=== PATIENT | female | born 1985 | race Two or more races ===

== ENCOUNTER 2019-05-11 21:38 | Inpatient (IN) | payer OTHER ==
[~2019-05-11] VITALS: Ht 170.2 cm; Wt 59.1 kg
[2019-05-11] MEDS ORDERED: ALPR1TAB7 PO (21:49)
[2019-05-11] MEDS ORDERED: LORA-1001 PO (21:49)
[2019-05-11] MEDS ORDERED: LIDOCAINE 5% TRANSDERMAL PATCH TD ONE (22:00)
[2019-05-11 22:46] LABS: BASOPHILS % (AUTO) 0.3 % (0.0-2.0); EOSINOPHILS % (AUTO) 1.7 % (1.0-6.0); HEMATOCRIT 25.5 % (36-46); HEMOGLOBIN 8.7 g/dL (12.0-16.0); LYMPHOCYTES # (AUTO) 0.9 K/uL (1.0-4.8); LYMPHOCYTES % (AUTO) 20.7 % (22.0-44.0); MEAN CORPUSCULAR HEMOGLOBIN 26.7 pg (26.0-34.0); MEAN CORPUSCULAR HGB CONC 34.1 G/dL (31.0-37.0); MEAN CORPUSCULAR VOLUME 78 fL (80-100); MONOCYTES # (AUTO) 0.3 K/uL (0.1-1.0); NEUTROPHILS # (AUTO) 3.1 K/uL (1.8-7.7); NEUTROPHILS % (AUTO) 71.3 % (40.0-70.0); PLATELET COUNT (AUTO) 405 K/uL (150-450); RED BLOOD CELL COUNT(AUTO) 3.25 MIL/uL (4.00-5.20); RED CELL DISTRIBUTION WIDTH 15.2 % (11.5-14.5)
[2019-05-11 22:48] LABS: APPEARANCE,URINE CLOUDY (CLEAR); BILIRUBIN,URINE NEGATIVE (NEGATIVE); GLUCOSE, URINE (UA) NEGATIVE (NEGATIVE); KETONES,URINE NEGATIVE (NEGATIVE); LEUKOCYTE ESTERASE ,URINE NEGATIVE (NEGATIVE); NITRATE,URINE NEGATIVE (NEGATIVE); OCCULT BLOOD,URINE NEGATIVE (NEGATIVE); PH,URINE 7.5 (5.0-8.0); PROTEIN,URINE NEGATIVE (NEGATIVE)
[2019-05-11 22:54] LABS: AMPHET/METH SCREEN,URINE POSITIVE (NEGATIVE); BARBITURATE SCREEN, URINE NEGATIVE (NEGATIVE); BENZODIAZEPINES SCREEN,URINE POSITIVE (NEGATIVE); CANNABINOID SCREEN,URINE NEGATIVE (NEGATIVE); COCAINE SCREEN,URINE NEGATIVE (NEGATIVE); METHADONE SCREEN, URINE NEGATIVE (NEGATIVE); OPIATE SCREEN,URINE POSITIVE (NEGATIVE)
[2019-05-11 22:56] LABS: PHENCYCLIDINE SCREEN,URINE NEGATIVE (NEGATIVE)
[2019-05-11 22:57] LABS: ANION GAP 4 mmol/L (8-16); CALCIUM, TOTAL 8.5 mg/dL (8.8-10.5); CARBON DIOXIDE 31 mmol/L (22-29); CHLORIDE 102 mmol/L (98-107); CREATININE 0.77 mg/dL (0.60-1.30); GLOMERULAR FILTR. RATE CALC > 60 mL/min (>60); GLUCOSE,RANDOM 110 mg/dL (70-110); POTASSIUM 3.6 mmol/L (3.5-5.1); SODIUM SERUM 137 mmol/L (136-145); UREA NITROGEN, BLOOD 5 mg/dL (7-18)
[2019-05-11 23:06] LABS: BACTERIA,URINE None Seen /HPF (None Seen); RBC,URINE None Seen /HPF (0-2); SQUAMOUS EPITHELIAL CELL,UR Few /LPF (None Seen); WBC,URINE 0-2 /HPF (0-5)
[2019-05-11 23:10] LABS: ALANINE AMINOTRANSFERASE 17 U/L (12-78); ALBUMIN 2.8 g/dL (3.4-5.0); ALKALINE PHOSPHATASE 93 U/L (46-116); ASPARTATE AMINOTRANSFERASE 18 U/L (15-37); BILIRUBIN,TOTAL 0.4 mg/dL (0.1-1.0); HCG,QUANTITATIVE < 1 mIU/mL (0-6); TOTAL PROTEIN, SERUM 6.9 g/dL (6.4-8.2)
[2019-05-11] MEDS ORDERED: ONDANSETRON HCL 4 MG/2 ML VIAL IVP PRN (23:30)
[2019-05-11] MEDS ORDERED: LORazepam 2 MG/ML VIAL IM PRN (23:30)
[2019-05-11] MEDS ORDERED: 0.9% SODIUM CHLORIDE 10 ML SYRINGE IVP PRN (23:30)
[2019-05-11] MEDS ORDERED: SULFAMETHOX/TRIMETH DS 800-160 MG/TABLET PO ONE (23:30)
[2019-05-11] MEDS ORDERED: POTASSIUM CHL 10 MEQ/WATER 50 ML IV PRN (23:30)
[2019-05-11] MEDS ORDERED: ZOLPIDEM TARTRATE 5 MG TABLET PO PRN (23:30)
[2019-05-11] MEDS ORDERED: MAGNESIUM SULFATE 2 GM/WATER 50 ML IV PRN (23:30)
[2019-05-11] MEDS ORDERED: MAGNESIUM OXIDE 400 MG TABLET PO PRN (23:30)
[2019-05-11] MEDS ORDERED: POTASSIUM CHLORIDE 20 MEQ ER TABLET PO PRN (23:30)
[2019-05-11] MEDS ORDERED: CefTRIAXone 1 GM/DEXTROSE 50 ML IV ONE (23:30)
[2019-05-11] MEDS ORDERED: MAGNESIUM SULFATE 4 GM/WATER 100 ML IV PRN (23:30)
[2019-05-12 03:31] VITALS: BP 107/71
[2019-05-12] MEDS: ENOXAPARIN SODIUM 40 MG/0.4 ML PF SYRINGE SQ SCH (08:03)
[2019-05-12] MEDS: PANTOPRAZOLE SODIUM 40 MG DR TABLET PO SCH (08:04)
[2019-05-12] MEDS: ACETAMINOPHEN 325 MG TABLET PO PRN ×2 (08:04→12:38)
[2019-05-12 08:11] VITALS: BP 102/64
[2019-05-12 08:32] LABS: BASOPHILS % (AUTO) 0.2 % (0.0-2.0); EOSINOPHILS % (AUTO) 4.1 % (1.0-6.0); HEMATOCRIT 29.2 % (36-46); HEMOGLOBIN 9.6 g/dL (12.0-16.0); LYMPHOCYTES # (AUTO) 0.8 K/uL (1.0-4.8); LYMPHOCYTES % (AUTO) 25.7 % (22.0-44.0); MEAN CORPUSCULAR HEMOGLOBIN 26.2 pg (26.0-34.0); MEAN CORPUSCULAR VOLUME 79 fL (80-100); MONOCYTES # (AUTO) 0.2 K/uL (0.1-1.0); MONOCYTES % (AUTO) 6.5 % (2.0-9.0); NEUTROPHILS # (AUTO) 2.1 K/uL (1.8-7.7); NEUTROPHILS % (AUTO) 63.5 % (40.0-70.0); PLATELET COUNT (AUTO) 427 K/uL (150-450); RED BLOOD CELL COUNT(AUTO) 3.68 MIL/uL (4.00-5.20); RED CELL DISTRIBUTION WIDTH 15.7 % (11.5-14.5)
[2019-05-12 08:42] LABS: ANION GAP 7 mmol/L (8-16); CALCIUM, TOTAL 8.7 mg/dL (8.8-10.5); CARBON DIOXIDE 30 mmol/L (22-29); CHLORIDE 104 mmol/L (98-107); CREATININE 0.78 mg/dL (0.60-1.30); GLOMERULAR FILTR. RATE CALC > 60 mL/min (>60); GLUCOSE,RANDOM 108 mg/dL (70-110); POTASSIUM 3.9 mmol/L (3.5-5.1); SODIUM SERUM 141 mmol/L (136-145); UREA NITROGEN, BLOOD 5 mg/dL (7-18)
[2019-05-12] MEDS ORDERED: DOCUSATE SODIUM 100 MG CAPSULE PO SCH (09:00)
[2019-05-12] MEDS ORDERED: THIAMINE HCL 100 MG TABLET PO SCH (09:00)
[2019-05-12] MEDS ORDERED: FOLIC ACID 1 MG TABLET PO SCH (09:00)
[2019-05-12] MEDS ORDERED: MAGNESIUM SULFATE 2 GM, MVI, ADULT NO.1 WITH VIT K 10 ML, THIAMINE HCL 100 MG, FOLIC AC... IV ONE ×5 (11:15)
[2019-05-12 11:35] VITALS: BP 121/70
[2019-05-12] MEDS ORDERED: DOCUSATE SODIUM 100 MG CAPSULE PO PRN (13:30)
[2019-05-12] MEDS ORDERED: VANCOMYCIN HCL 1.25 GM in DEXTROSE 5%-WATER 250 ML IV ONE (14:00)
[2019-05-12] MEDS ORDERED: SODIUM CHLORIDE 0.9% 500 ML IV ONE (14:27)
[2019-05-12] MEDS ORDERED: MORPHINE SULFATE 10 MG/5 ML SOLUTION UDCUP PO PRN (16:00)
[2019-05-12] MEDS ORDERED: ALPRAZolam 0.25 MG TABLET PO SCH (16:00)
[2019-05-12 16:05] VITALS: BP 128/77
[2019-05-12] MEDS: ALPRAZolam 0.25 MG TABLET PO PRN (16:36)
[2019-05-12] MEDS: MORPHINE SULFATE 2 MG/ML SYRINGE IVP PRN (16:42)
[2019-05-12] MEDS: NICOTINE 14 MG/24 HOUR PATCH TD SCH (18:21)
[2019-05-12 20:47] VITALS: BP 114/60
[2019-05-12] MEDS: MIRTAZAPINE 15 MG TABLET PO SCH (20:57)
[2019-05-12] MEDS ORDERED: QUEtiapine FUMARATE 25 MG TABLET PO SCH (21:00)
[2019-05-12] MEDS: CefTRIAXone 1 GM/DEXTROSE 50 ML IV SCH (21:04)
[2019-05-12 23:16] VITALS: BP 101/68
[2019-05-13] MEDS: ALPRAZolam 0.25 MG TABLET PO PRN ×3 (00:08→22:40)
[2019-05-13] MEDS: ACETAMINOPHEN 325 MG TABLET PO PRN (00:12)
[2019-05-13] MEDS: VANCOMYCIN HCL 1 GM/D5% WATER 200 ML IV SCH ×3 (02:04→14:17)
[2019-05-13] MEDS: MORPHINE SULFATE 2 MG/ML SYRINGE IVP PRN ×3 (02:04→22:38)
[2019-05-13] MEDS: LORazepam 2 MG/ML VIAL IVP PRN ×2 (02:08→18:41)
[2019-05-13 08:15] VITALS: BP 100/60
[2019-05-13] MEDS: PANTOPRAZOLE SODIUM 40 MG DR TABLET PO SCH (10:14)
[2019-05-13] MEDS: NICOTINE 14 MG/24 HOUR PATCH TD SCH (10:14)
[2019-05-13] MEDS: ENOXAPARIN SODIUM 40 MG/0.4 ML PF SYRINGE SQ SCH (10:15)
[2019-05-13] MEDS ORDERED: SODIUM CHLORIDE 0.9% 250 ML IV ONE (14:13)
[2019-05-13 15:53] VITALS: BP 117/76
[2019-05-13 19:38] VITALS: BP 124/85
[2019-05-13] MEDS: MIRTAZAPINE 15 MG TABLET PO SCH (21:25)
[2019-05-13] MEDS: QUEtiapine FUMARATE 100 MG TABLET PO SCH (21:26)
[2019-05-13] MEDS: CefTRIAXone 1 GM/DEXTROSE 50 ML IV SCH (22:38)
[2019-05-13 23:31] VITALS: BP 120/73
[2019-05-14] MEDS: VANCOMYCIN HCL 1 GM/D5% WATER 200 ML IV SCH ×2 (00:31→06:28)
[2019-05-14] MEDS: LORazepam 2 MG/ML VIAL IVP PRN (01:44)
[2019-05-14 05:01] VITALS: BP 121/71
[2019-05-14] MEDS: NICOTINE 14 MG/24 HOUR PATCH TD SCH (09:11)
[2019-05-14] MEDS: PANTOPRAZOLE SODIUM 40 MG DR TABLET PO SCH (09:11)
[2019-05-14] MEDS: ENOXAPARIN SODIUM 40 MG/0.4 ML PF SYRINGE SQ SCH (09:11)
[2019-05-14 11:20] LABS: ANION GAP 8 mmol/L (8-16); CALCIUM, TOTAL 9.1 mg/dL (8.8-10.5); CARBON DIOXIDE 27 mmol/L (22-29); CHLORIDE 110 mmol/L (98-107); CREATININE 0.94 mg/dL (0.60-1.30); GLOMERULAR FILTR. RATE CALC > 60 mL/min (>60); GLUCOSE,RANDOM 99 mg/dL (70-110); POTASSIUM 3.7 mmol/L (3.5-5.1); SODIUM SERUM 145 mmol/L (136-145); UREA NITROGEN, BLOOD 9 mg/dL (7-18); VANCOMYCIN,RANDOM 14.5 mcg/mL (25.0-50.0)
[2019-05-14 11:32] VITALS: BP 102/65
[2019-05-14] MEDS: ChlordiazePOXIDE HCL 25 MG CAPSULE PO PRN (14:57)
[2019-05-14 15:28] VITALS: BP 109/63
[2019-05-14] MEDS: CEPHALEXIN MONOHYDRATE 500 MG CAPSULE PO SCH ×2 (15:53→20:12)
[2019-05-14] MEDS: ACETAMINOPHEN 325 MG TABLET PO PRN ×2 (16:38→20:16)
[2019-05-14] MEDS: MORPHINE SULFATE 2 MG/ML SYRINGE IVP PRN ×2 (17:52→22:21)
[2019-05-14 19:38] VITALS: BP 127/76
[2019-05-14] MEDS: QUEtiapine FUMARATE 100 MG TABLET PO SCH (20:12)
[2019-05-14] MEDS: SULFAMETHOX/TRIMETH DS 800-160 MG/TABLET PO SCH (20:12)
[2019-05-14] MEDS: MIRTAZAPINE 15 MG TABLET PO SCH (20:12)
[2019-05-14] MEDS: ALPRAZolam 0.25 MG TABLET PO PRN (22:21)
[2019-05-15 08:15] VITALS: BP 111/78
[2019-05-15] MEDS: NICOTINE 14 MG/24 HOUR PATCH TD SCH (08:36)
[2019-05-15] MEDS: SULFAMETHOX/TRIMETH DS 800-160 MG/TABLET PO SCH (08:36)
[2019-05-15] MEDS: CEPHALEXIN MONOHYDRATE 500 MG CAPSULE PO SCH (08:36)
[2019-05-15] MEDS: PANTOPRAZOLE SODIUM 40 MG DR TABLET PO SCH (08:36)
[2019-05-15] MEDS: ENOXAPARIN SODIUM 40 MG/0.4 ML PF SYRINGE SQ SCH (08:37)
[2019-05-15] MEDS: MORPHINE SULFATE 2 MG/ML SYRINGE IVP PRN ×2 (08:37→13:20)
[2019-05-15] MEDS: ChlordiazePOXIDE HCL 25 MG CAPSULE PO PRN (11:21)
[2019-05-15] MEDS ORDERED: MIRT15 PO (12:51)
[2019-05-15] MEDS ORDERED: CEPH500 PO (12:51)
[2019-05-15] MEDS ORDERED: QUET100T PO (12:52)
[2019-05-15] MEDS ORDERED: SULF1TAB42 PO (12:52)
[2019-05-15] MEDS: ALPRAZolam 0.25 MG TABLET PO PRN (13:20)
[2019-05-15 14:14] LABS: MAGNESIUM 2.2 mg/dL (1.80-2.40); PHOSPHORUS 3.1 mg/dL (2.5-4.9)
== END 2019-05-15 16:00 | DRG 897 ==
LOC: EMS 21:43 → 6S 22:23
PROVIDERS: ADMIT Internal Medicine; ATTEND Internal Medicine
DX: F10.231 Alcohol dependence with withdrawal delirium (principal); L03.119 Cellulitis of unspecified part of limb; F15.10 Other stimulant abuse, uncomplicated; F41.9 Anxiety disorder, unspecified; F17.210 Nicotine dependence, cigarettes, uncomplicated; Z91.040 Latex allergy status
CPT/HCPCS: 83735; 84100; 84145; 85379; 87070; 87205; 93970; G0480; J0696; J1650; J2060; J2270; J3370; J3411; J3475; J3490; J7030; J7040; J7050; J7060

== ENCOUNTER 2019-05-15 20:56 | Inpatient (IN) | payer OTHER ==
[~2019-05-15] VITALS: Ht 170.2 cm; Wt 59.1 kg
[~2019-05-15 20:56] MED LIST: ALPR1TAB7 PO; CEPH500 PO; LORA-1001 PO; MIRT-92 PO; QUET100T PO; SULF1TAB42 PO
[2019-05-15 21:38] LABS: BASOPHILS % (AUTO) 0.3 % (0.0-2.0); EOSINOPHILS % (AUTO) 0.3 % (1.0-6.0); HEMATOCRIT 32.1 % (36-46); HEMOGLOBIN 10.5 g/dL (12.0-16.0); LYMPHOCYTES # (AUTO) 1.2 K/uL (1.0-4.8); LYMPHOCYTES % (AUTO) 18.6 % (22.0-44.0); MEAN CORPUSCULAR HEMOGLOBIN 26.1 pg (26.0-34.0); MEAN CORPUSCULAR HGB CONC 32.7 G/dL (31.0-37.0); MEAN CORPUSCULAR VOLUME 80 fL (80-100); MONOCYTES # (AUTO) 0.2 K/uL (0.1-1.0); MONOCYTES % (AUTO) 3.6 % (2.0-9.0); NEUTROPHILS # (AUTO) 5.1 K/uL (1.8-7.7); NEUTROPHILS % (AUTO) 77.2 % (40.0-70.0); PLATELET COUNT (AUTO) 527 K/uL (150-450); RED BLOOD CELL COUNT(AUTO) 4.01 MIL/uL (4.00-5.20); RED CELL DISTRIBUTION WIDTH 15.7 % (11.5-14.5)
[2019-05-15 21:57] LABS: ANION GAP 8 mmol/L (8-16); CALCIUM, TOTAL 8.8 mg/dL (8.8-10.5); CARBON DIOXIDE 27 mmol/L (22-29); CHLORIDE 108 mmol/L (98-107); CREATININE 0.99 mg/dL (0.60-1.30); GLOMERULAR FILTR. RATE CALC > 60 mL/min (>60); GLUCOSE,RANDOM 105 mg/dL (70-110); POTASSIUM 3.6 mmol/L (3.5-5.1); SODIUM SERUM 143 mmol/L (136-145); UREA NITROGEN, BLOOD 9 mg/dL (7-18)
[2019-05-15 22:09] LABS: ALANINE AMINOTRANSFERASE 28 U/L (12-78); ALBUMIN 3.3 g/dL (3.4-5.0); ALKALINE PHOSPHATASE 100 U/L (46-116); ASPARTATE AMINOTRANSFERASE 34 U/L (15-37); BILIRUBIN,TOTAL 0.3 mg/dL (0.1-1.0); HCG,QUANTITATIVE < 1 mIU/mL (0-6); TOTAL PROTEIN, SERUM 7.7 g/dL (6.4-8.2)
[2019-05-15] MEDS ORDERED: MAG HYDROX/AL HYDROX/SIMETH ES 30 ML SUSPENSION UDCUP PO PRN (22:15)
[2019-05-15] MEDS ORDERED: ONDANSETRON HCL 4 MG TABLET PO PRN (22:15)
[2019-05-15] MEDS ORDERED: MAGNESIUM HYDROXIDE SUSPENSION 30 ML UDCUP PO PRN (22:15)
[2019-05-15] MEDS ORDERED: IBUPROFEN 400 MG TABLET PO PRN (22:15)
[2019-05-15] MEDS ORDERED: PETROLATUM,WHITE 28 GM JELLY TP PRN (22:15)
[2019-05-15] MEDS ORDERED: GuaiFENesin/D-METHORPHAN [SUGAR-FREE] 200-20MG/10 ML SYRUP UDCUP PO PRN (22:15)
[2019-05-15] MEDS ORDERED: DICYCLOMINE HCL 10 MG CAPSULE PO PRN (22:15)
[2019-05-15] MEDS ORDERED: ALBUTEROL SULFATE HFA 90 MCG/PUFF 8 GM INHALER IH PRN (22:15)
[2019-05-15] MEDS ORDERED: LOPERAMIDE HCL 2 MG CAPSULE PO PRN (22:15)
[2019-05-15] MEDS ORDERED: QUEtiapine FUMARATE 100 MG TABLET PO SCH (22:23)
[2019-05-15] MEDS ORDERED: MIRTAZAPINE 15 MG TABLET PO SCH (22:23)
[2019-05-15] MEDS ORDERED: SULFAMETHOX/TRIMETH DS 800-160 MG/TABLET PO SCH (22:24)
[2019-05-15 22:38] VITALS: BP 114/86
[2019-05-16] MEDS: SULFAMETHOX/TRIMETH DS 800-160 MG/TABLET PO SCH ×3 (01:15→19:59)
[2019-05-16 04:28] VITALS: BP 116/62
[2019-05-16 08:29] VITALS: BP 115/73
[2019-05-16] MEDS: CEPHALEXIN MONOHYDRATE 500 MG CAPSULE PO SCH ×3 (09:20→19:59)
[2019-05-16 11:35] VITALS: BP 123/77
[2019-05-16] MEDS ORDERED: DEXTROSE 5%-0.45% SODIUM CHL 1,000 ML IV ONE (13:00)
[2019-05-16 15:17] LABS: AMPHET/METH SCREEN,URINE NEGATIVE (NEGATIVE); BARBITURATE SCREEN, URINE NEGATIVE (NEGATIVE); BENZODIAZEPINES SCREEN,URINE POSITIVE (NEGATIVE); CANNABINOID SCREEN,URINE NEGATIVE (NEGATIVE); COCAINE SCREEN,URINE NEGATIVE (NEGATIVE); METHADONE SCREEN, URINE NEGATIVE (NEGATIVE); OPIATE SCREEN,URINE POSITIVE (NEGATIVE); PHENCYCLIDINE SCREEN,URINE NEGATIVE (NEGATIVE)
[2019-05-16 15:45] VITALS: BP 122/77
[2019-05-16] MEDS: ONDANSETRON HCL 4 MG TABLET PO PRN (16:06)
[2019-05-16 17:42] LABS: MAGNESIUM 1.9 mg/dL (1.80-2.40)
[2019-05-16] MEDS ORDERED: MAG HYDROX/AL HYDROX/SIMETH ES 30 ML SUSPENSION UDCUP PO PRN (17:45)
[2019-05-16] MEDS ORDERED: DIAZEPAM 10 MG TABLET PO PRN (17:45)
[2019-05-16] MEDS ORDERED: CloNIDine HCL 0.1 MG TABLET PO PRN (17:45)
[2019-05-16 18:24] VITALS: BP 120/65
[2019-05-16] MEDS ORDERED: DIAZEPAM 5 MG TABLET PO PRN (19:15)
[2019-05-16 19:45] VITALS: BP 134/94
[2019-05-16] MEDS: OLANZapine 10 MG TABLET PO SCH (19:59)
[2019-05-17 05:58] VITALS: BP 126/76
[2019-05-17] MEDS ORDERED: DIAZEPAM 10 MG TABLET PO PRN (07:00)
[2019-05-17 08:19] VITALS: BP 123/80
[2019-05-17 08:24] LABS: ANION GAP 10 mmol/L (8-16); CALCIUM, TOTAL 9.1 mg/dL (8.8-10.5); CARBON DIOXIDE 25 mmol/L (22-29); CHLORIDE 104 mmol/L (98-107); CREATININE 0.94 mg/dL (0.60-1.30); GLOMERULAR FILTR. RATE CALC > 60 mL/min (>60); GLUCOSE,RANDOM 113 mg/dL (70-110); SODIUM SERUM 139 mmol/L (136-145); UREA NITROGEN, BLOOD 7 mg/dL (7-18)
[2019-05-17] MEDS: DIAZEPAM 10 MG TABLET PO SCH ×4 (08:37→20:19)
[2019-05-17] MEDS: CEPHALEXIN MONOHYDRATE 500 MG CAPSULE PO SCH (08:37)
[2019-05-17] MEDS: SULFAMETHOX/TRIMETH DS 800-160 MG/TABLET PO SCH ×2 (08:37→20:19)
[2019-05-17] MEDS: OLANZapine 5 MG TABLET PO SCH (08:39)
[2019-05-17] MEDS ORDERED: SODIUM CHLORIDE 0.9% 250 ML IV ONE (09:00)
[2019-05-17 11:47] VITALS: BP 115/80
[2019-05-17] MEDS: NICOTINE 14 MG/24 HOUR PATCH TD PRN (13:07)
[2019-05-17] MEDS ORDERED: LEVOFLOXACIN 500 MG TABLET PO SCH (15:15)
[2019-05-17 15:35] VITALS: BP 137/92
[2019-05-17] MEDS: LEVOFLOXACIN 250 MG TABLET PO SCH (16:27)
[2019-05-17] MEDS: IBUPROFEN 600 MG TABLET PO PRN ×2 (16:29→23:28)
[2019-05-17 20:02] VITALS: BP 133/78
[2019-05-17] MEDS: OLANZapine 10 MG TABLET PO SCH (20:19)
[2019-05-17] MEDS: HydrOXYzine PAMOATE 50 MG CAPSULE PO PRN (23:28)
[2019-05-18] VITALS (7 sets, daily range): BP systolic 117–133; BP diastolic 56–86
[2019-05-18 06:39] LABS: ANION GAP 9 mmol/L (8-16); CALCIUM, TOTAL 9.5 mg/dL (8.8-10.5); CARBON DIOXIDE 26 mmol/L (22-29); CHLORIDE 101 mmol/L (98-107); CREATININE 0.94 mg/dL (0.60-1.30); GLOMERULAR FILTR. RATE CALC > 60 mL/min (>60); GLUCOSE,RANDOM 116 mg/dL (70-110); POTASSIUM 4.7 mmol/L (3.5-5.1); SODIUM SERUM 136 mmol/L (136-145); UREA NITROGEN, BLOOD 9 mg/dL (7-18)
[2019-05-18] MEDS: DIAZEPAM 10 MG TABLET PO SCH ×4 (08:28→21:48)
[2019-05-18] MEDS: LEVOFLOXACIN 250 MG TABLET PO SCH (08:29)
[2019-05-18] MEDS: SULFAMETHOX/TRIMETH DS 800-160 MG/TABLET PO SCH ×2 (08:29→20:09)
[2019-05-18] MEDS: ONDANSETRON HCL 4 MG TABLET PO PRN (08:29)
[2019-05-18] MEDS: OLANZapine 5 MG TABLET PO SCH (08:29)
[2019-05-18] MEDS: IBUPROFEN 600 MG TABLET PO PRN ×2 (11:32→20:09)
[2019-05-18] MEDS: ACETAMINOPHEN 325 MG TABLET PO PRN ×2 (14:58→23:43)
[2019-05-18] MEDS: NICOTINE 14 MG/24 HOUR PATCH TD PRN (14:59)
[2019-05-18] MEDS: OLANZapine 10 MG TABLET PO SCH (20:09)
[2019-05-18] MEDS: HydrOXYzine PAMOATE 50 MG CAPSULE PO PRN (20:09)
[2019-05-18] MEDS: DICYCLOMINE HCL 10 MG CAPSULE PO PRN (21:48)
[2019-05-19 02:43] VITALS: BP 121/75
[2019-05-19] MEDS: IBUPROFEN 600 MG TABLET PO PRN ×4 (02:51→18:04)
[2019-05-19] MEDS ORDERED: DIAZEPAM 5 MG TABLET PO PRN (07:00)
[2019-05-19 07:50] VITALS: BP 155/78
[2019-05-19] MEDS: ONDANSETRON HCL 4 MG TABLET PO PRN ×2 (09:18→18:04)
[2019-05-19] MEDS: SULFAMETHOX/TRIMETH DS 800-160 MG/TABLET PO SCH ×2 (09:20→20:21)
[2019-05-19] MEDS: LEVOFLOXACIN 250 MG TABLET PO SCH (09:20)
[2019-05-19] MEDS: DIAZEPAM 5 MG TABLET PO SCH ×4 (09:21→20:24)
[2019-05-19] MEDS: OLANZapine 5 MG TABLET PO SCH (09:45)
[2019-05-19 10:38] LABS: CALCIUM, TOTAL 9.3 mg/dL (8.8-10.5); CREATININE 1.1 mg/dL (0.60-1.30)
[2019-05-19] MEDS: NICOTINE 14 MG/24 HOUR PATCH TD PRN (11:15)
[2019-05-19 11:43] VITALS: BP 131/90
[2019-05-19 16:03] VITALS: BP 128/78
[2019-05-19 19:54] VITALS: BP 137/92
[2019-05-19] MEDS: OLANZapine 10 MG TABLET PO SCH (20:21)
[2019-05-19] MEDS: HydrOXYzine PAMOATE 50 MG CAPSULE PO PRN (22:34)
[2019-05-20 04:52] VITALS: BP 123/80
[2019-05-20] MEDS: IBUPROFEN 600 MG TABLET PO PRN ×3 (04:56→22:02)
[2019-05-20] MEDS: ONDANSETRON HCL 4 MG TABLET PO PRN ×2 (06:05→13:00)
[2019-05-20] MEDS: DICYCLOMINE HCL 10 MG CAPSULE PO PRN (06:05)
[2019-05-20] MEDS ORDERED: DIAZEPAM 5 MG TABLET PO PRN (07:00)
[2019-05-20 07:15] VITALS: BP 138/86
[2019-05-20] MEDS: OLANZapine 5 MG TABLET PO SCH (08:33)
[2019-05-20] MEDS: SULFAMETHOX/TRIMETH DS 800-160 MG/TABLET PO SCH ×2 (08:33→20:17)
[2019-05-20] MEDS: LEVOFLOXACIN 250 MG TABLET PO SCH (08:33)
[2019-05-20] MEDS: DIAZEPAM 10 MG TABLET PO PRN ×2 (09:34→20:27)
[2019-05-20 11:20] VITALS: BP 129/74
[2019-05-20] MEDS: NICOTINE 14 MG/24 HOUR PATCH TD PRN (13:13)
[2019-05-20] MEDS: HydrOXYzine PAMOATE 50 MG CAPSULE PO PRN (13:22)
[2019-05-20 15:15] VITALS: BP 132/86
[2019-05-20] MEDS: ACETAMINOPHEN 325 MG TABLET PO PRN (17:43)
[2019-05-20 20:00] VITALS: BP 131/88
[2019-05-20] MEDS: OLANZapine 10 MG TABLET PO SCH (20:17)
[2019-05-20 23:57] VITALS: BP 126/81
[2019-05-21] MEDS: MELATONIN 5 MG TABLET PO PRN ×2 (00:11→21:08)
[2019-05-21 05:45] VITALS: BP 115/76
[2019-05-21] MEDS: ONDANSETRON HCL 4 MG TABLET PO PRN ×2 (06:44→16:40)
[2019-05-21 07:44] VITALS: BP 119/74
[2019-05-21] MEDS: DIAZEPAM 10 MG TABLET PO SCH ×4 (07:59→20:04)
[2019-05-21] MEDS: LEVOFLOXACIN 250 MG TABLET PO SCH (07:59)
[2019-05-21] MEDS: SULFAMETHOX/TRIMETH DS 800-160 MG/TABLET PO SCH ×2 (07:59→20:04)
[2019-05-21] MEDS: NICOTINE 14 MG/24 HOUR PATCH TD PRN (07:59)
[2019-05-21] MEDS: OLANZapine 5 MG TABLET PO SCH (08:01)
[2019-05-21 10:06] LABS: AMPHET/METH SCREEN,URINE NEGATIVE (NEGATIVE); BARBITURATE SCREEN, URINE NEGATIVE (NEGATIVE); BENZODIAZEPINES SCREEN,URINE POSITIVE (NEGATIVE); CANNABINOID SCREEN,URINE NEGATIVE (NEGATIVE); COCAINE SCREEN,URINE NEGATIVE (NEGATIVE); METHADONE SCREEN, URINE NEGATIVE (NEGATIVE); OPIATE SCREEN,URINE NEGATIVE (NEGATIVE)
[2019-05-21 10:11] LABS: PHENCYCLIDINE SCREEN,URINE NEGATIVE (NEGATIVE)
[2019-05-21 11:40] VITALS: BP 119/77
[2019-05-21] MEDS: IBUPROFEN 600 MG TABLET PO PRN ×2 (12:21→18:42)
[2019-05-21 15:45] VITALS: BP 150/79
[2019-05-21] MEDS: OLANZapine 10 MG TABLET PO SCH (20:21)
[2019-05-21 20:23] VITALS: BP 147/98
[2019-05-21 23:06] VITALS: BP 110/71
[2019-05-22] MEDS: DIAZEPAM 10 MG TABLET PO PRN (04:54)
[2019-05-22 05:20] VITALS: BP 119/71
[2019-05-22] MEDS: ONDANSETRON HCL 4 MG TABLET PO PRN ×2 (07:03→12:18)
[2019-05-22 07:34] VITALS: BP 135/81
[2019-05-22] MEDS: DIAZEPAM 10 MG TABLET PO SCH ×4 (08:55→19:47)
[2019-05-22] MEDS: OLANZapine 5 MG TABLET PO SCH (08:56)
[2019-05-22] MEDS: SULFAMETHOX/TRIMETH DS 800-160 MG/TABLET PO SCH ×2 (08:56→19:47)
[2019-05-22] MEDS: LEVOFLOXACIN 250 MG TABLET PO SCH (08:56)
[2019-05-22] MEDS: NICOTINE 14 MG/24 HOUR PATCH TD PRN (09:00)
[2019-05-22 12:19] VITALS: BP 131/80
[2019-05-22 16:04] VITALS: BP 133/99
[2019-05-22] MEDS: IBUPROFEN 600 MG TABLET PO PRN (18:44)
[2019-05-22] MEDS: OLANZapine 10 MG TABLET PO SCH (19:47)
[2019-05-22 19:52] VITALS: BP 148/83
[2019-05-22] MEDS: MELATONIN 5 MG TABLET PO PRN (21:54)
[2019-05-23] MEDS: DIAZEPAM 10 MG TABLET PO PRN ×2 (00:18→06:04)
[2019-05-23] MEDS: ONDANSETRON HCL 4 MG TABLET PO PRN ×2 (06:05→21:51)
[2019-05-23] MEDS ORDERED: DIAZEPAM 5 MG TABLET PO PRN (07:00)
[2019-05-23 07:35] VITALS: BP 122/76
[2019-05-23] MEDS: OLANZapine 5 MG TABLET PO SCH (07:54)
[2019-05-23] MEDS: LEVOFLOXACIN 250 MG TABLET PO SCH (07:54)
[2019-05-23] MEDS: SULFAMETHOX/TRIMETH DS 800-160 MG/TABLET PO SCH ×2 (07:55→22:04)
[2019-05-23] MEDS: DIAZEPAM 5 MG TABLET PO SCH ×4 (07:55→21:53)
[2019-05-23] MEDS: IBUPROFEN 600 MG TABLET PO PRN ×3 (09:44→23:13)
[2019-05-23] MEDS: NICOTINE 14 MG/24 HOUR PATCH TD PRN (09:45)
[2019-05-23 16:02] VITALS: BP 121/69
[2019-05-23 20:15] VITALS: BP 137/88
[2019-05-23] MEDS: OLANZapine 10 MG TABLET PO SCH (22:04)
[2019-05-23 23:35] VITALS: BP 121/78
[2019-05-24] MEDS: METOCLOPRAMIDE HCL 5 MG/ML 2 ML VIAL IVP PRN ×3 (01:11→16:19)
[2019-05-24] MEDS: MELATONIN 5 MG TABLET PO PRN (01:11)
[2019-05-24 05:50] VITALS: BP 114/71
[2019-05-24] MEDS: SULFAMETHOX/TRIMETH DS 800-160 MG/TABLET PO SCH ×2 (08:19→21:17)
[2019-05-24] MEDS: DOCUSATE SODIUM 100 MG CAPSULE PO PRN (08:19)
[2019-05-24] MEDS: OLANZapine 5 MG TABLET PO SCH (08:19)
[2019-05-24] MEDS: LEVOFLOXACIN 250 MG TABLET PO SCH (08:19)
[2019-05-24] MEDS: DIAZEPAM 5 MG TABLET PO PRN ×4 (08:20→21:18)
[2019-05-24] MEDS: NICOTINE 14 MG/24 HOUR PATCH TD PRN (09:28)
[2019-05-24 10:02] VITALS: BP 105/62
[2019-05-24 11:15] VITALS: BP 131/88
[2019-05-24] MEDS: IBUPROFEN 600 MG TABLET PO PRN (12:21)
[2019-05-24 15:15] VITALS: BP 117/71
[2019-05-24] MEDS: SODIUM CHLORIDE 0.9% 1,000 ML IV SCH (17:01)
[2019-05-24 20:13] VITALS: BP 109/60
[2019-05-24] MEDS: OLANZapine 10 MG TABLET PO SCH (21:17)
[2019-05-25] MEDS: MELATONIN 5 MG TABLET PO PRN ×2 (00:19→21:28)
[2019-05-25 05:12] VITALS: BP 122/62
[2019-05-25 07:33] VITALS: BP 112/68
[2019-05-25] MEDS: IBUPROFEN 600 MG TABLET PO PRN ×2 (07:56→18:25)
[2019-05-25] MEDS: LEVOFLOXACIN 250 MG TABLET PO SCH (07:56)
[2019-05-25] MEDS: DOCUSATE SODIUM 100 MG CAPSULE PO PRN (07:56)
[2019-05-25] MEDS: SULFAMETHOX/TRIMETH DS 800-160 MG/TABLET PO SCH ×2 (07:56→20:17)
[2019-05-25] MEDS: OLANZapine 5 MG TABLET PO SCH (07:58)
[2019-05-25] MEDS: SODIUM CHLORIDE 0.9% 1,000 ML IV SCH ×2 (08:00→21:31)
[2019-05-25] MEDS: METOCLOPRAMIDE HCL 5 MG/ML 2 ML VIAL IVP PRN (09:03)
[2019-05-25] MEDS: HydrOXYzine PAMOATE 50 MG CAPSULE PO PRN ×2 (09:12→21:44)
[2019-05-25] MEDS: NICOTINE 14 MG/24 HOUR PATCH TD PRN (10:54)
[2019-05-25] MEDS: ACETAMINOPHEN 325 MG TABLET PO PRN (15:31)
[2019-05-25] MEDS: ONDANSETRON HCL 4 MG TABLET PO PRN (15:31)
[2019-05-25 16:25] VITALS: BP 119/74
[2019-05-25 19:58] VITALS: BP 126/70
[2019-05-25] MEDS: OLANZapine 10 MG TABLET PO SCH (20:17)
[2019-05-26 04:00] VITALS: BP 105/74
[2019-05-26] MEDS: IBUPROFEN 600 MG TABLET PO PRN (06:53)
[2019-05-26] MEDS: ONDANSETRON HCL 4 MG TABLET PO PRN (06:53)
[2019-05-26 08:00] VITALS: BP 125/80
[2019-05-26] MEDS: OLANZapine 5 MG TABLET PO SCH (09:04)
[2019-05-26] MEDS: SULFAMETHOX/TRIMETH DS 800-160 MG/TABLET PO SCH (09:04)
[2019-05-26] MEDS: LEVOFLOXACIN 250 MG TABLET PO SCH (09:04)
[2019-05-26 11:48] VITALS: BP 118/71
[2019-05-26] MEDS: NICOTINE 14 MG/24 HOUR PATCH TD PRN (12:02)
[2019-05-26] MEDS: ACETAMINOPHEN 325 MG TABLET PO PRN (12:02)
[2019-05-26] MEDS: SODIUM CHLORIDE 0.9% 1,000 ML IV SCH (13:38)
[2019-05-26] MEDS ORDERED: OLAN5TAB2 PO (14:30)
[2019-05-26] MEDS ORDERED: OLAN10TA3 PO (14:31)
== END 2019-05-26 16:15 | DRG 897 ==
LOC: EMS 20:57 → 6S 21:38
PROVIDERS: ADMIT Internal Medicine; ATTEND Internal Medicine
PROC: 05HY33Z Insertion of Infusion Device into Upper Vein, Percutaneous Approach (ICD-10-PCS; principal; 2019-05-24)
DX: F19.239 Other psychoactive substance dependence with withdrawal, unspecified (principal); L03.116 Cellulitis of left lower limb; F41.9 Anxiety disorder, unspecified; F25.9 Schizoaffective disorder, unspecified; F17.210 Nicotine dependence, cigarettes, uncomplicated; F11.10 Opioid abuse, uncomplicated; F13.10 Sedative, hypnotic or anxiolytic abuse, uncomplicated; F25.1 Schizoaffective disorder, depressive type; Z79.899 Other long term (current) drug therapy
CPT/HCPCS: 36569; 76881; 80307; 83735; 84100; 84145; 85379; 87070; 87205; 93970; G0480; J0696; J1650; J2060; J2270; J2765; J3370; J3411; J3475; J3490; J7030; J7040; J7050; J7060; Q0162

== ENCOUNTER 2024-02-25 09:23 | Inpatient (IN) | payer OTHER ==
[~2024-02-25] VITALS: Ht 170.2 cm; Wt 86.4 kg
[~2024-02-25 09:23] MED LIST changes: -ALPR1TAB7 PO; -CEPH500 PO; +GABA-1181 PO; -LORA-1001 PO; -MIRT-92 PO; +OLAN5TAB52 PO; -QUET100T PO; -SULF1TAB42 PO
[2024-02-25 10:55] LABS: APPEARANCE,URINE CLEAR (CLEAR); BILIRUBIN,URINE NEGATIVE (NEGATIVE); COLOR,URINE LIGHT YELLOW (YELLOW); GLUCOSE, URINE (UA) NEGATIVE (NEGATIVE); KETONES,URINE TRACE mg/dL (NEGATIVE); LEUKOCYTE ESTERASE ,URINE NEGATIVE (NEGATIVE); NITRATE,URINE NEGATIVE (NEGATIVE); OCCULT BLOOD,URINE NEGATIVE (NEGATIVE); PROTEIN,URINE NEGATIVE (NEGATIVE); SPECIFIC GRAVITIY, URINE 1.015 (1.003-1.030); UROBILINOGEN,URINE <=1.0 mg/dL (<=1.0)
[2024-02-25 11:03] LABS: ALCOHOL, URINE DRUG SCREEN NEGATIVE (NEGATIVE); AMPHET/METH SCREEN,URINE NEGATIVE (NEGATIVE); BARBITURATE SCREEN, URINE NEGATIVE (NEGATIVE); BENZODIAZEPINES SCREEN,URINE POSITIVE (NEGATIVE); CANNABINOID SCREEN,URINE POSITIVE (NEGATIVE); COCAINE SCREEN,URINE NEGATIVE (NEGATIVE); METHADONE SCREEN, URINE NEGATIVE (NEGATIVE); OPIATE SCREEN,URINE NEGATIVE (NEGATIVE); PHENCYCLIDINE SCREEN,URINE NEGATIVE (NEGATIVE)
[2024-02-25] MEDS: SODIUM CHLORIDE 0.9% 1,000 ML IV ONE ×2 (11:07→13:56)
[2024-02-25] MEDS: ONDANSETRON HCL 4 MG/2 ML VIAL IVP ONE (11:07)
[2024-02-25 11:35] LABS: BASOPHILS % (AUTO) 0.2 % (0.0-2.0); EOSINOPHILS % (AUTO) 0.6 % (1.0-6.0); HEMATOCRIT 37.9 % (36-46); HEMOGLOBIN 12.8 g/dL (12.0-16.0); LYMPHOCYTES # (AUTO) 0.9 K/uL (1.0-4.8); LYMPHOCYTES % (AUTO) 14.7 % (22.0-44.0); MEAN CORPUSCULAR HEMOGLOBIN 28.8 pg (26.0-34.0); MEAN CORPUSCULAR HGB CONC 33.9 G/dL (31.0-37.0); MEAN CORPUSCULAR VOLUME 85 fL (80-100); MONOCYTES # (AUTO) 0.3 K/uL (0.1-1.0); NEUTROPHILS # (AUTO) 5.1 K/uL (1.8-7.7); NEUTROPHILS % (AUTO) 79.5 % (40.0-70.0); PLATELET COUNT (AUTO) 363 K/uL (150-450); RED BLOOD CELL COUNT(AUTO) 4.45 MIL/uL (4.00-5.20); RED CELL DISTRIBUTION WIDTH 14.8 % (11.5-14.5); WHITE BLOOD COUNT (AUTO) 6.4 K/uL (4.5-11.0)
[2024-02-25] MEDS: LORazepam 1 MG TABLET PO ONE (11:35)
[2024-02-25 12:00] LABS: ALANINE AMINOTRANSFERASE 23 U/L (12-78); ALBUMIN 3.7 g/dL (3.4-5.0); ALKALINE PHOSPHATASE 65 U/L (46-116); ANION GAP 9 mmol/L (8-16); ASPARTATE AMINOTRANSFERASE 19 U/L (15-37); BILIRUBIN,TOTAL 0.6 mg/dL (0.1-1.0); CALCIUM, TOTAL 8.9 mg/dL (8.8-10.5); CARBON DIOXIDE 29 mmol/L (22-29); CHLORIDE 101 mmol/L (98-107); GLOMERULAR FILTR. RATE CALC > 60 mL/min (>60); GLUCOSE,RANDOM 121 mg/dL (70-110); LIPASE 84 U/L (16-77); SODIUM SERUM 139 mmol/L (136-145); UREA NITROGEN, BLOOD 10 mg/dL (7-18)
[2024-02-25 12:05] LABS: POTASSIUM 2.8 mmol/L (3.5-5.1)
[2024-02-25] MEDS: POTASSIUM CHL 10 MEQ/WATER 50 ML IV SCH (12:31)
[2024-02-25] MEDS ORDERED: POTASSIUM CHLORIDE 20 MEQ ER TABLET PO PRN ×2 (12:45)
[2024-02-25] MEDS ORDERED: POTASSIUM CHL 10 MEQ/WATER 50 ML IV PRN ×2 (12:45)
[2024-02-25] MEDS ORDERED: MAGNESIUM HYDROXIDE SUSPENSION 30 ML UDCUP PO PRN (12:45)
[2024-02-25] MEDS: POTASSIUM CHLORIDE 20 MEQ ER TABLET PO ONE (13:25)
[2024-02-25] MEDS: ACETAMINOPHEN 325 MG TABLET PO PRN (13:56)
[2024-02-25] MEDS: LORazepam 2 MG/ML VIAL IVP PRN (13:56)
[2024-02-25 18:43] VITALS: BP 134/87; PULSE 84; RESP 16; TEMP 97.5; O2SAT 97
[2024-02-25 19:58] VITALS: BP 125/66; PULSE 76; RESP 18; TEMP 98.2; O2SAT 96
[2024-02-25] MEDS: ONDANSETRON HCL 4 MG/2 ML VIAL IVP PRN (20:30)
[2024-02-25] MEDS: ZOLPIDEM TARTRATE 5 MG TABLET PO PRN (20:30)
[2024-02-25] MEDS: FAMOTIDINE 20 MG TABLET PO SCH (20:31)
[2024-02-26 04:23] VITALS: BP 129/84; PULSE 80; RESP 18; TEMP 98.1; O2SAT 98
[2024-02-26 08:30] VITALS: BP 131/77; PULSE 79; RESP 19; TEMP 98.7; O2SAT 97
[2024-02-26 12:00] VITALS: BP 148/85; PULSE 88
[2024-02-26] MEDS: CloNIDine HCL 0.1 MG TABLET PO PRN (12:03)
[2024-02-26 15:23] VITALS: BP 135/74; PULSE 80; RESP 18; TEMP 97.6; O2SAT 96
== END 2024-02-26 19:56 | disposition left against medical advice (07) | DRG 641 ==
LOC: EMS 09:23 → EDH 12:59 → 6S 17:38
PROVIDERS: ADMIT Internal Medicine; ATTEND Internal Medicine
DX: E87.6 Hypokalemia (principal); F11.23 Opioid dependence with withdrawal; G40.909 Epilepsy, unspecified, not intractable, without status epilepticus; I10 Essential (primary) hypertension; Y90.9 Presence of alcohol in blood, level not specified; Z53.29 Procedure and treatment not carried out because of patient's decision for other reasons; F41.9 Anxiety disorder, unspecified; F10.20 Alcohol dependence, uncomplicated; Z91.040 Latex allergy status
CPT/HCPCS: 80048; 80076; 80307; 81003; 83690; 83735; 84132; 84703; 85025; 93005; 99285; J2060; J2405; J3480; J7030

== ENCOUNTER 2025-04-18 11:55 | Emergency (ER) | payer MEDICAID, OTHER ==
[~2025-04-18] VITALS: Ht 172.7 cm; Wt 81.8 kg
[2025-04-18 12:19] VITALS: BP 155/67; PULSE 97; RESP 18; TEMP 97.9; O2SAT 91
== END 2025-04-18 13:19 ==
LOC: EMS 11:55
DX: S16.1XXA Strain of muscle, fascia and tendon at neck level, initial encounter (principal); S60.222A Contusion of left hand, initial encounter; S00.83XA Contusion of other part of head, initial encounter; F10.229 Alcohol dependence with intoxication, unspecified; F41.9 Anxiety disorder, unspecified; I10 Essential (primary) hypertension; Z91.040 Latex allergy status; Y09 Assault by unspecified means; Y93.89 Activity, other specified; Y92.89 Other specified places as the place of occurrence of the external cause; Y99.8 Other external cause status; Y90.9 Presence of alcohol in blood, level not specified
CPT/HCPCS: 99283